=== PATIENT | female | born 1985 | race African-American/Black ===

== ENCOUNTER 2017-05-22 17:48 | Emergency (ER) | payer SELFPAY ==
[~2017-05-22] VITALS: Ht 170.2 cm; Wt 80.0 kg
[~2017-05-22 17:48] MED LIST: LURA40TA PO
[2017-05-22] MEDS ORDERED: SODIUM CHLORIDE 0.9% 1,000 ML IV ONE (18:32)
[2017-05-22 18:49] LABS: BASOPHILS % 1.1 % (0.0-2.0); EOSINOPHILS % 7.4 % (0.0-5.0); HEMATOCRIT. 27.3 % (36.0-48.0); HEMOGLOBIN. 8.6 g/dL (12.0-16.0); LYMPHOCYTES % 21.8 % (20.0-50.0); MEAN CORPUSCULAR HEMOGLOBIN 24.6 pg (28.0-32.0); MEAN CORPUSCULAR VOLUME 77.9 fL (81.0-99.0); MEAN PLATELET VOLUME 7.3 fl (7.4-10.4); MONOCYTES % 10.7 % (2.0-8.0); PLATELET 646 x1000/uL (130-400); RED BLOOD CELL COUNT 3.51 mill/uL (4.2-5.4)
[2017-05-22 18:56] LABS: INR 1.1; PARTIAL THROMBOPLASTIN TIME 25.8 sec (23.4-31.0)
[2017-05-22 18:57] LABS: HCG SCREEN NEGATIVE
[2017-05-22 19:04] LABS: CARBON DIOXIDE 26 mEq/L (21-32); CHLORIDE 105 mEq/L (98-107); TROPONIN I < 0.02 ng/mL (0.00-0.04)
[2017-05-22 19:06] LABS: CLARITY URINE CLOUDY (CLEAR); COLOR URINE DARK YELLOW (YELLOW); GLUCOSE URINE NEGATIVE (NEGATIVE); KETONES URINE 1+ (NEGATIVE); LEUKOCYTE ESTERASE URINE TRACE (NEGATIVE); NITRITE URINE NEGATIVE (NEGATIVE); OCCULT BLOOD URINE 3+ (NEGATIVE); PROTEIN URINE 1+ (NEGATIVE); SPECIFIC GRAVITY URINE 1.034 (1.005-1.030)
[2017-05-22 19:18] LABS: *BARBITURATES SCREEN URINE NEGATIVE (NEGATIVE); *BENZODIAZEPINES SCREEN URINE NEGATIVE (NEGATIVE); *COCAINE SCREEN URINE NEGATIVE (NEGATIVE); METHADONE URINE SCREEN NEGATIVE (NEGATIVE); OPIATES URINE SCREEN NEGATIVE (NEGATIVE); PHENCYCLIDINE URINE SCREEN NEGATIVE (NEGATIVE)
[2017-05-22 19:23] LABS: *AMPHETAMINES SCREEN URINE PRESUMTIVE POSITIVE (NEGATIVE); CANNABINOID URINE SCREEN PRESUMTIVE POSITIVE (NEGATIVE)
[2017-05-22 20:35] VITALS: BP 95/51
== END 2017-05-22 20:42 | disposition home or self-care (01) ==
LOC: ER 17:55
DX: E86.0 Dehydration (principal); N39.0 Urinary tract infection, site not specified; F15.10 Other stimulant abuse, uncomplicated; J45.909 Unspecified asthma, uncomplicated; D64.9 Anemia, unspecified; K21.9 Gastro-esophageal reflux disease without esophagitis; I10 Essential (primary) hypertension; F31.9 Bipolar disorder, unspecified; Z98.890 Other specified postprocedural states; W19.XXXA Unspecified fall, initial encounter; Y93.89 Activity, other specified; Y92.89 Other specified places as the place of occurrence of the external cause; Y99.8 Other external cause status
CPT/HCPCS: 36415; 80053; 80305; 81001; 83690; 84443; 84484; 84703; 85025; 85610; 85730; 93005; 96360; 96361; 99285; J7030; Z7610

== ENCOUNTER 2017-08-27 19:11 | Emergency (ER) | payer MEDICAID, OTHER ==
[~2017-08-27] VITALS: Ht 175.3 cm; Wt 91.0 kg
[2017-08-27] MEDS ORDERED: SODIUM CHLORIDE 0.9% 1,000 ML IV ONE (19:45)
[2017-08-27 20:05] LABS: BASOPHILS % 1.4 % (0.0-2.0); EOSINOPHILS % 7.8 % (0.0-5.0); HEMATOCRIT. 25.9 % (36.0-48.0); HEMOGLOBIN. 8.3 g/dL (12.0-16.0); LYMPHOCYTES % 32.4 % (20.0-50.0); MEAN CORPUSCULAR HEMOGLOBIN 24.6 pg (28.0-32.0); MEAN PLATELET VOLUME 7.3 fl (7.4-10.4); MONOCYTES % 8.3 % (2.0-8.0); NEUTROPHILS % 50.1 % (40.0-76.0); PLATELET 270 x1000/uL (130-400); RED BLOOD CELL COUNT 3.36 mill/uL (4.2-5.4); RED CELL DISTRIBUTION WIDTH 19.5 % (11.6-14.6)
[2017-08-27 20:16] LABS: CHLORIDE 109 mEq/L (98-107)
[2017-08-27 20:21] LABS: CARBON DIOXIDE 28 mEq/L (21-32)
[2017-08-27 22:05] VITALS: BP 103/58
== END 2017-08-27 22:09 | disposition home or self-care (01) ==
LOC: ER 19:11
DX: D64.9 Anemia, unspecified (principal); I10 Essential (primary) hypertension; K21.9 Gastro-esophageal reflux disease without esophagitis; F31.9 Bipolar disorder, unspecified
CPT/HCPCS: 36415; 80053; 85025; 96360; 96361; 99285; J7030; Z7610; 96365; 96366

== ENCOUNTER 2019-02-19 17:05 | Emergency (ER) | payer OTHER, MEDICAID ==
[~2019-02-19] VITALS: Ht 167.6 cm; Wt 154.0 kg
[2019-02-19] MEDS ORDERED: LIDOCAINE HCL/PF 1% 10 MG/ML 5ML VIAL IJ ONE (18:15)
[2019-02-19] MEDS ORDERED: LIDOCAINE HCL 1% 20ML VIAL (Pyxis) INJ INFIL ONE (18:15)
[2019-02-19] MEDS ORDERED: TETANUS, DIPHTHERIA, PERTUSSIS VAC/PF 0.5ML (>7YR OLD) IM ONE (18:15)
[2019-02-19] MEDS ORDERED: BACITRACIN ZINC OINT UDPKT TOP ONE (18:15)
[2019-02-19 19:27] VITALS: BP 115/69
== END 2019-02-19 19:34 | disposition home or self-care (01) ==
LOC: ER 17:05
DX: S01.81XA Laceration without foreign body of other part of head, initial encounter (principal); I10 Essential (primary) hypertension; J45.909 Unspecified asthma, uncomplicated; F31.9 Bipolar disorder, unspecified; W01.0XXA Fall on same level from slipping, tripping and stumbling without subsequent striking against object, initial encounter; Y93.89 Activity, other specified; Y92.018 Other place in single-family (private) house as the place of occurrence of the external cause
CPT/HCPCS: 12013; 90471; 90715; 99283; J3490

== ENCOUNTER 2019-03-08 19:28 | Emergency (ER) | payer OTHER, MEDICAID ==
[~2019-03-08] VITALS: Ht 167.6 cm; Wt 70.0 kg
[2019-03-08 19:32] VITALS: BP 108/64
== END 2019-03-08 22:01 | disposition home or self-care (01) ==
LOC: ER 19:28
DX: S01.81XD Laceration without foreign body of other part of head, subsequent encounter (principal); D64.9 Anemia, unspecified; J45.909 Unspecified asthma, uncomplicated; F31.9 Bipolar disorder, unspecified; I10 Essential (primary) hypertension; X58.XXXD Exposure to other specified factors, subsequent encounter
CPT/HCPCS: 99281; Z7610

== ENCOUNTER 2020-05-12 00:37 | Emergency (ER) | payer OTHER ==
[~2020-05-12] VITALS: Ht 160 cm; Wt 58.0 kg
[2020-05-12] MEDS ORDERED: ACETAMINOPHEN 325MG TABLET PO ONE (01:30)
[2020-05-12 02:09] LABS: BASOPHILS % 1.7 % (0.0-2.0); EOSINOPHILS % 6.1 % (0.0-5.0); LYMPHOCYTES % 20.8 % (20.0-50.0); MEAN CORPUSCULAR HEMOGLOBIN 18.2 pg (28.0-32.0); MEAN CORPUSCULAR VOLUME 61.9 fL (81.0-99.0); MEAN PLATELET VOLUME 7.4 fl (7.4-10.4); MONOCYTES % 9.9 % (2.0-8.0); NEUTROPHILS % 61.5 % (40.0-76.0); PLATELET 805 x1000/uL (130-400); RED BLOOD CELL COUNT 3.19 mill/uL (4.2-5.4); RED CELL DISTRIBUTION WIDTH 22.6 % (11.6-14.6)
[2020-05-12] MEDS ORDERED: SODIUM CHLORIDE 0.9% 1,000 ML IV ONE (02:16)
[2020-05-12 02:18] LABS: HEMATOCRIT. 19.7 % (36.0-48.0); HEMOGLOBIN. 5.8 g/dL (12.0-16.0)
[2020-05-12 02:40] LABS: CHLORIDE 108 mEq/L (98-107)
[2020-05-12 02:43] LABS: INR 1.1; PROTHROMBIN TIME 11.1 sec (9.6-11.0)
[2020-05-12 03:50] LABS: PLATELET ESTIMATE INCREASED
[2020-05-12 08:38] LABS: HEMATOCRIT 21.6 % (36.0-48.0); HEMOGLOBIN 6.6 g/dL (12.0-16.0)
[2020-05-12 10:46] VITALS: BP 130/63
== END 2020-05-12 10:45 | disposition short-term general hospital (02) ==
LOC: ER 01:14
DX: D64.9 Anemia, unspecified (principal); D25.9 Leiomyoma of uterus, unspecified; Z98.890 Other specified postprocedural states
CPT/HCPCS: 36415; 71045; 80053; 85014; 85018; 85025; 85610; 86850; 86900; 86901; 86920; 93005; 96360; 99285; J7030; P9016

== ENCOUNTER 2021-02-09 14:18 | Emergency (ER) | payer OTHER ==
[~2021-02-09] VITALS: Ht 167.6 cm; Wt 59.0 kg
[2021-02-09] MEDS ORDERED: CEPHALEXIN 250MG CAPSULE PO ONE (15:45)
[2021-02-09] MEDS ORDERED: KETOROLAC 60MG/2ML VIAL IM ONE (15:45)
[2021-02-09] MEDS ORDERED: AMOXICILLIN/POTASSIUM CLAVULANATE 875/125MG TAB PO ONE (15:45)
[2021-02-09] MEDS ORDERED: SULFAMETHOXAZOLE/TRIMETHOPRIM 800/160MG TABLET PO ONE (15:45)
[2021-02-09 16:31] VITALS: BP 128/75
[2021-02-09] MEDS ORDERED: CEPH500C2 MT (16:47)
[2021-02-09] MEDS ORDERED: AMOX-424 MT (16:47)
[2021-02-09] MEDS ORDERED: SULF1TAB48 MT (16:47)
[2021-02-09] MEDS ORDERED: ACET-2708 MT (16:47)
== END 2021-02-09 16:55 | disposition home or self-care (01) ==
LOC: ER 14:18
DX: K04.7 Periapical abscess without sinus (principal); L02.414 Cutaneous abscess of left upper limb; J45.909 Unspecified asthma, uncomplicated; Z98.890 Other specified postprocedural states
CPT/HCPCS: 81025; 96372; 99284; J1885